=== PATIENT | female | born 1995 | race Two or more races ===

== ENCOUNTER 2019-03-23 10:22 | Observation (INO) | payer MEDICAID, OTHER ==
[2019-03-23] MEDS ORDERED: PREN-153 PO (11:52)
== END 2019-03-23 12:50 | disposition home or self-care (01) | DRG 566 ==
LOC: LDRP 10:22
PROVIDERS: ADMIT Obstetrics & Gynecology; ATTEND Obstetrics & Gynecology
DX: O36.5930 Maternal care for other known or suspected poor fetal growth, third trimester, not applicable or unspecified (principal); O26.893 Other specified pregnancy related conditions, third trimester; N89.8 Other specified noninflammatory disorders of vagina; Z3A.35 35 weeks gestation of pregnancy; Z87.891 Personal history of nicotine dependence
CPT/HCPCS: 59025; 76818; 81002; G0378

== ENCOUNTER 2019-03-26 10:20 | Observation (INO) | payer MEDICAID ==
[~2019-03-26 10:20] MED LIST: PREN-153 PO
== END 2019-03-26 11:35 | disposition home or self-care (01) | DRG 566 ==
LOC: LDRP 10:20
PROVIDERS: ADMIT Obstetrics & Gynecology; ATTEND Obstetrics & Gynecology
DX: O26.893 Other specified pregnancy related conditions, third trimester (principal); N89.8 Other specified noninflammatory disorders of vagina; Z3A.35 35 weeks gestation of pregnancy; Z87.891 Personal history of nicotine dependence
CPT/HCPCS: 59025; 76818; 81002; G0378

== ENCOUNTER 2019-03-27 09:23 | Observation (INO) | payer MEDICAID | END 2019-03-27 10:20 | disposition home or self-care (01) | DRG 566 | LOC: LDRP 09:23 | PROVIDERS: ADMIT Obstetrics & Gynecology; ATTEND Obstetrics & Gynecology | DX: O36.5930 Maternal care for other known or suspected poor fetal growth, third trimester, not applicable or unspecified (principal); Z3A.35 35 weeks gestation of pregnancy; Z87.891 Personal history of nicotine dependence | CPT/HCPCS: 59025; 81002; G0378 ==

== ENCOUNTER 2019-03-28 13:10 | Observation (INO) | payer MEDICAID ==
[~2019-03-28] VITALS: Ht 160 cm; Wt 97.1 kg
[2019-03-28] MEDS ORDERED: ceFAZolin 1GM/50ML 50 ML IV ONE (14:15)
[2019-03-28] MEDS ORDERED: LACTATED RINGER'S 1,000 ML IV ONE (14:15)
[2019-03-28 16:14] LABS: Urine Bacteria NONE SEEN /hpf (None Seen); Urine Blood Negative /uL (Negative); Urine Mucus FEW (None Seen); Urine Specific Gravity 1.019 (1.001-1.035); Urine WBC 5 /hpf (0 - 5)
[2019-03-28 16:22] LABS: Alcohol, Urine < 3.0 mg/dL (0-5); Amphetamine Screen, Urine NEGATIVE (NEGATIVE); Barbiturate Scree,Urine NEGATIVE (NEGATIVE); Benzodiazephine Screen, Urine NEGATIVE (NEGATIVE); Cannabinoid Screen, Urine NEGATIVE (NEGATIVE); Cocaine Screen, Urine NEGATIVE (NEGATIVE); Opiate Scree,Urine NEGATIVE (NEGATIVE); Phencyclidine Screen, Urine NEGATIVE (NEGATIVE)
== END 2019-03-28 15:58 | disposition home or self-care (01) | DRG 566 ==
LOC: LDRP 13:10
PROVIDERS: ADMIT Obstetrics & Gynecology; ATTEND Obstetrics & Gynecology
DX: O26.893 Other specified pregnancy related conditions, third trimester (principal); R10.2 Pelvic and perineal pain; Z3A.35 35 weeks gestation of pregnancy
CPT/HCPCS: 59025; 80307; 81001; 81002; 96365; G0378; J0690; 96361

== ENCOUNTER 2019-04-01 10:38 | Observation (INO) | payer MEDICAID | END 2019-04-01 11:30 | disposition home or self-care (01) | DRG 566 | LOC: LDRP 10:38 | PROVIDERS: ADMIT Specialist; ATTEND Specialist | DX: O36.5930 Maternal care for other known or suspected poor fetal growth, third trimester, not applicable or unspecified (principal); Z3A.36 36 weeks gestation of pregnancy; Z87.891 Personal history of nicotine dependence | CPT/HCPCS: 59025; 76818; 81002; G0378 ==

== ENCOUNTER 2019-04-06 09:50 | Observation (INO) | payer MEDICAID | END 2019-04-06 12:05 | disposition home or self-care (01) | DRG 566 | LOC: LDRP 09:50 | PROVIDERS: ADMIT Obstetrics & Gynecology; ATTEND Obstetrics & Gynecology | DX: O36.5930 Maternal care for other known or suspected poor fetal growth, third trimester, not applicable or unspecified (principal); Z3A.37 37 weeks gestation of pregnancy; Z87.891 Personal history of nicotine dependence | CPT/HCPCS: 59025; 76818; 81002; G0378 ==

== ENCOUNTER 2019-04-10 00:21 | Observation (INO) | payer MEDICAID | END 2019-04-10 02:18 | disposition home or self-care (01) | DRG 566 | LOC: LDRP 00:21 | PROVIDERS: ADMIT Specialist; ATTEND Specialist | DX: O26.893 Other specified pregnancy related conditions, third trimester (principal); R10.2 Pelvic and perineal pain; R19.7 Diarrhea, unspecified; O23.43 Unspecified infection of urinary tract in pregnancy, third trimester; Z3A.37 37 weeks gestation of pregnancy | CPT/HCPCS: 59025; 81002; G0378 ==

== ENCOUNTER 2019-04-13 08:50 | Observation (INO) | payer MEDICAID | END 2019-04-13 10:05 | disposition home or self-care (01) | DRG 566 | LOC: LDRP 08:50 | PROVIDERS: ADMIT Obstetrics & Gynecology; ATTEND Obstetrics & Gynecology | DX: O36.5930 Maternal care for other known or suspected poor fetal growth, third trimester, not applicable or unspecified (principal); Z3A.38 38 weeks gestation of pregnancy; Z91.048 Other nonmedicinal substance allergy status | CPT/HCPCS: 76818; 82962; G0378; 59025; 81002 ==

== ENCOUNTER 2019-04-20 10:09 | Observation (INO) | payer MEDICAID | END 2019-04-20 10:55 | disposition home or self-care (01) | DRG 566 | LOC: LDRP 10:09 | PROVIDERS: ADMIT Obstetrics & Gynecology; ATTEND Obstetrics & Gynecology | DX: O36.5930 Maternal care for other known or suspected poor fetal growth, third trimester, not applicable or unspecified (principal); Z3A.39 39 weeks gestation of pregnancy; Z91.048 Other nonmedicinal substance allergy status | CPT/HCPCS: 76818; G0378; 59025; 81002 ==

== ENCOUNTER 2019-04-22 20:23 | Observation (INO) | payer MEDICAID ==
[2019-04-22 22:27] LABS: Urine Bacteria NONE SEEN /hpf (None Seen); Urine Blood Negative /uL (Negative); Urine Specific Gravity 1.016 (1.001-1.035); Urine WBC 4 /hpf (0 - 5)
== END 2019-04-22 21:30 | disposition home or self-care (01) | DRG 251 ==
LOC: LDRP 20:23
PROVIDERS: ADMIT Specialist; ATTEND Specialist
DX: R10.31 Right lower quadrant pain (principal); R10.32 Left lower quadrant pain; Z3A.39 39 weeks gestation of pregnancy
CPT/HCPCS: 59025; 76818; 81001; 81002; G0378

== ENCOUNTER 2019-04-23 20:11 | Inpatient (IN) | payer MEDICAID ==
[~2019-04-23] VITALS: Ht 160 cm; Wt 101.2 kg
[2019-04-23] MEDS ORDERED: LACTATED RINGER'S 1,000 ML IV SCH (20:29)
[2019-04-23] MEDS ORDERED: LACT. RINGERS/OXYTOCIN 20UNITS 1,000 ML IV SCH (20:29)
[2019-04-23] MEDS ORDERED: DERMOPLAST 60ML BOTTLE TOP PRN (20:30)
[2019-04-23] MEDS ORDERED: WITCH HAZEL-GLYCERIN PAD TOP PRN (20:30)
[2019-04-23] MEDS ORDERED: LIDOCAINE 2%HCL (LOCAL ANESTH.) INJ 20ML MDV ID ONE (20:30)
[2019-04-23] MEDS ORDERED: METHYLERGONOVINE MALEATE 0.2 MG/ML AMP IM PRN (20:30)
[2019-04-23] MEDS ORDERED: CARBOPROST TROMETHAMINE 250 MCG/1ML VIAL IM PRN (20:30)
[2019-04-23] MEDS ORDERED: PHISODERM TOP SOLN 240ML BTL TOP PRN (20:30)
[2019-04-23] MEDS ORDERED: NALBUPHINE HCL 10 MG/1ml INJECTION IV PRN (20:30)
[2019-04-23 21:52] LABS: Basophils # (auto) 0 uL; Basophils % (auto) 0.1 % (0.0-2.0); Eosinophils # (auto) 0.1 uL; Eosinophils % (auto) 0.9 % (0.0-7.0); Hematocrit 35.2 % (36.0-46.0); Hemoglobin 11.9 g/dL (12.2-16.2); Mean Corpuscular Hemoglobin 29.9 pg (28.0-32.0); Mean Corpuscular Hgb Conc. 33.9 g/dL (32.0-36.0); Mean Corpuscular Volume 88.2 fL (80.0-100.0); Monocytes # (auto) 0.6 uL; Monocytes % (auto) 7.9 % (0.0-12.0); Neutrophils % (auto) 65.1 % (37.0-80.0); Nucleated Red Blood Cells % 0.1 %; Platelet Count (auto) 308 10^3/uL (140-450); Red Blood Cells 3.99 10^6/uL (4.0-5.20); Red Cell Distribution Width 14.2 % (11.8-14.3); White Blood Cell 7.7 10^3/uL (4.4-10.8)
[2019-04-23 22:08] LABS: INR < 0.93 (0.9-1.15); Partial Thromboplastin Time 30.6 sec (23.64-32.05)
[2019-04-23 22:10] LABS: Alanine Aminotransferase 22 U/L (13-56); Albumin 2.4 g/dL (3.4-5.0); Anion Gap 12 (5-15); Aspartate Aminotransferase 26 U/L (15-37); BUN/Creatinine Ratio 12.2; Blood Urea Nitrogen 6 mg/dL (7-18); Calcium 8.2 mg/dL (8.5-10.1); Carbon Dioxide 21 mmol/L (21-32); Chloride 107 mmol/L (98-107); GFR African American 205 mL/min; GFR Non-African American 169 mL/min; Glucose 130 mg/dL (74-106); Potassium 3.6 mmol/L (3.5-5.1); Sodium 140 mmol/L (136-145)
[2019-04-23 22:14] LABS: Alkaline Phosphatase 158 U/L (45-117); Bilirubin, Total 0.1 mg/dL (0.2-1.0); Total Protein 6.1 g/dL (6.4-8.2)
[2019-04-23 22:15] LABS: Urine Bacteria NONE SEEN /hpf (None Seen); Urine Blood Negative /uL (Negative); Urine Specific Gravity 1.008 (1.001-1.035); Urine WBC 6 /hpf (0 - 5)
[2019-04-24] MEDS ORDERED: NALBUPHINE HCL 10 MG/1ml INJECTION IV PRN (03:15)
[2019-04-24] MEDS ORDERED: PROMETHAZINE HCL 25 MG/ML 1ML IV PRN (03:15)
[2019-04-25 09:06] LABS: RPR Non Reactive (Non Reactive)
== END 2019-04-24 08:20 | disposition home or self-care (01) | DRG 566 ==
LOC: LDRP 20:11
PROVIDERS: ADMIT Obstetrics & Gynecology; ATTEND Obstetrics & Gynecology
PROC: 3E0P7VZ Introduction of Hormone into Female Reproductive, Via Natural or Artificial Opening (ICD-10-PCS; principal; 2019-04-24)
DX: O26.893 Other specified pregnancy related conditions, third trimester (principal); O61.9 Failed induction of labor, unspecified; Z3A.39 39 weeks gestation of pregnancy
CPT/HCPCS: 36415; 59025; 76818; 80053; 81001; 84112; 85025; 85610; 85730; 86592; 86850; 86900; 86901; 87340; 96365; 96366; G0378

== ENCOUNTER 2019-04-26 10:57 | Observation (INO) | payer MEDICAID | END 2019-04-26 13:45 | disposition home or self-care (01) | DRG 566 | LOC: LDRP 10:57 | PROVIDERS: ADMIT Specialist; ATTEND Specialist | DX: O36.5930 Maternal care for other known or suspected poor fetal growth, third trimester, not applicable or unspecified (principal); O26.893 Other specified pregnancy related conditions, third trimester; N89.8 Other specified noninflammatory disorders of vagina; Z3A.39 39 weeks gestation of pregnancy | CPT/HCPCS: 59025; 76818; 81002; G0378 ==

== ENCOUNTER 2019-04-28 08:06 | Observation (INO) | payer MEDICAID | END 2019-04-28 09:15 | disposition home or self-care (01) | DRG 566 | LOC: LDRP 08:06 | PROVIDERS: ADMIT Specialist; ATTEND Specialist | DX: O48.0 Post-term pregnancy (principal); Z3A.40 40 weeks gestation of pregnancy; Z91.048 Other nonmedicinal substance allergy status | CPT/HCPCS: 59025; 76818; 81002; G0378 ==